=== PATIENT | male | born 1965 | race Two or more races ===

== ENCOUNTER 2025-09-23 10:05 | Emergency (ER) | payer BC, SELFPAY ==
[2025-09-23 10:05] VITALS: BMI 30.2
[2025-09-23 11:00] VITALS: BP 148/85; PULSE 73; RESP 19; TEMP 37.1; O2SAT 95; BMI 30.2
--- NOTE | 2025-09-23 11:01 | XR_ITS ---
Examination: CT abdomen and pelvis without contrast. Coronal 3-D reconstructions. Sagittal 2-D reconstructions. Date and time of exam: 09/23/2025 at 11:16 a.m. CTDI: vol (mGy): 9.7 DLP: (mGycm): 532 INDICATION: Left upper quadrant abdominal pain for 2 months Technique: Axial images of the abdomen have been obtained, 3 mm slice thickness Intravenous contrast material has not been administered. Low dose protocols were performed. One or more of the following dose reduction techniques were used; automated exposure control, adjustment of the mA and/or KV according to patient size, use of iterative reconstruction technique. Findings: In the lumbosacral spine, at L3-L4 there is a very prominent diffuse annular disc bulge, there is thickening of the ligamentum flavum on both sides, these findings do appear to put significant compression on the ventral margin of the thecal space. At L4-L5 there is also a very pronounced generalized disc protrusion which indents the ventral margin of the thecal sac significantly,. There is a midline disc protrusion at L5-S1 which is not is significant. No calcifications and no obstructive uropathy are seen in either kidney, no worrisome mass lesions are identified. The lower pole of the right kidney there is a huge thin-walled fluid-filled cyst measuring 4.6 cm, it has thin rim like calcifications around its margins there is a smaller exophytic sharply circumscribed cyst seen along the posterior margin of the mid upper right kidney measuring 2.5 cm The gallbladder appears normal as does the pancreas. The noncontrast appearance of the liver and spleen and adrenal glands appear normal para-aortic region appears normal. The small bowel loops all appear normal in size and appearance. In the right lower quadrant the appendix is very well visualized filled with air and it appears normal. In the pelvis I do not see any abnormalities. IMPRESSION: 1. There are 2 large benign cysts involving the right kidney of no concern. 2. There are no are no other abnormalities seen anywhere in the abdomen or pelvis. 3. In the lingula of the left upper lobe there is a single prominent area of tubular bronchiectasis. There is very minimal but definite bronchiectasis involving all of the basal segmental bronchi in the left lower lobe, there is definite attenuation and decrease in diameter of the peripheral of pulmonary vasculature in the base of the left lower lobe. 4. See above report regarding some degenerative changes in the lumbar lower lumbar spine
--- NOTE | 2025-09-23 11:01 | PD.EDRME ---
Rapid Medical Screening Exam RME Arrival date/time: 09/23/25 10:05 60-year-old male with no known medical history presents to the emergency room with a chief complaint of left upper quadrant and epigastric abdominal tenderness x 2 months I have greeted and performed a focused initial assessment of this patient. A comprehensive ED assessment and evaluation of the patient, analysis of all test results, and completion of the medical decision making process will be conducted by additional ED providers. Chief Complaint: Back Pain/Injury Time Seen by Provider: 09/23/25 10:24 Vital signs reviewed by provider: Yes Exam: Left upper quadrant abdominal tenderness 8 out of 10 Clear bilateral lung sounds Clinical Impression: Pancreatitis/abdominal pain
[2025-09-23 11:47] LABS: Basophils # (Auto) 0.0 Thou/mm3 (0.0-0.2); Basophils % (Auto) 1 % (0-2.5); Eosinophils # (Auto) 0.2 Thou/mm3 (0.0-0.5); Eosinophils % (Auto) 2 % (0-10); Hematocrit 45.4 % (41.0-53.0); Hemoglobin 16.0 g/dL (13.5-16.0); Immature Granulocytes Auto 0.02 Thou/mm3 (0.00-0.00); Lymphocytes # (Auto) 1.9 Thou/mm3 (1.0-4.8); Lymphocytes % (Auto) 22 % (10-50); Mean Corpuscular HGB Conc 35.2 g/dl (31.0-37.0); Mean Corpuscular Hemoglobin 33.1 pg (25.0-35.0); Mean Corpuscular Volume 94 fL (80-100); Monocytes # (Auto) 0.6 Thou/mm3 (0.0-0.8); Monocytes % (Auto) 7 % (0-12); Neutrophils # (Auto) 5.8 Thou/mm3 (1.8-7.7); Neutrophils % (Auto) 69 % (37-80); Nucleated Red Blood Cell # 0.00 Thou/mm3 (0.00-0.00); Nucleated Red Blood Cell % 0 /100 WBC (0); Platelet Count 243 Thou/mm3 (140-440); RDW Standard Deviation 41.8 fL (35.1-43.9); Red Blood Count 4.83 Miln/mm3 (4.50-5.90); White Blood Count 8.5 Thou/mm3 (3.8-10.6)
[2025-09-23 12:06] LABS: Alanine Aminotransferase 12 U/L (10-49); Albumin, Serum 4.4 gm/dL (3.4-4.8); Albumin/Globulin Ratio 1.2 (1.2-2.2); Alkaline Phosphatase 63 U/L (46-116); Anion Gap 13 (7-16); Aspartate Amino Transferase 15 U/L (0-34); BUN/Creatinine Ratio 22 Ratio (12-20); Bilirubin,Total 0.7 mg/dL (0.3-1.2); Blood Urea Nitrogen 13 mg/dL (9-23); Calcium 9.4 mg/dL (8.3-10.6); Calcium (Corrected) 9.4 mg/dL (8.5-10.1); Carbon Dioxide 24.8 mMol/L (20.0-31.0); Chloride 105 mMol/L (98-107); Creatinine (Component) 0.6 mg/dL (0.6-1.3); Estimated Creatinine Clearance 145.6 mL/min (>60); Globulin 3.6 gm/dL (2.3-3.5); Glucose 148 mg/dL (74-106); Lipase 26 U/L (12-53); Osmolality,Calculated 288 (275-295); Potassium 3.7 mMol/L (3.4-5.1); Sodium 143 mMol/L (136-145); Total Protein 8.0 gm/dL (5.7-8.2); eGFR > 60 See Note
[2025-09-23 12:55] LABS: Collection Type, Urine Clean Catch
[2025-09-23 13:04] LABS: Bacteria,Urine Rare; Bilirubin,Urine Negative (Negative); Blood,Urine Negative (Negative); Clarity,Urine Clear (Clear/Hazy); Color,Urine Yellow (Lt Yel-Yel); Glucose, Urine 4+ (Negative); Ketones,Urine 3+ (Negative); Leukocyte Esterase,Urine Negative (Negative); Nitrite,Urine Negative (Negative); PH,Urine 6.0 (5.0-7.0); Protein,Urine Trace (Neg - Trace); RBC,Urine 3 /hpf (0-3); Specific Gravity,Urine 1.049 (1.001-1.035); Squamous Epithelial Cell,Urine < 1 /hpf (0-5); Urobilinogen,Urine Negative mg/dL (0.0-1.0); WBC,Urine 2 /hpf (0-5)
--- NOTE | 2025-09-23 13:50 | EDNOTE_ITS ---
ED Back Injury Pain RME/HPI General Chief Complaint: Back Pain/Injury Stated Complaint: MID LOWER BACK PAIN X2 MONTHS, LUQ ABD X1 MONTH Time Seen by Provider: 09/23/25 10:24 Arrival date/time: 09/23/25 10:05 60-year-old male patient with significant history of hypertension, came in for evaluation regarding mid back pain radiating to the left upper quadrant, has been ongoing for the last 1 to 2 months, described as dull ache, severity moderate. Patient denies any trauma denies any fall denies any dysuria denies any hematuria. Patient also denies any bladder incontinence or bowel incontinence. Denies any fever. Was seen by PCP, laboratory workup were noted to be unremarkable. Patient is ambulatory. RME / HPI RME / HPI Narrative: 09/23/25 10:05 60-year-old male with no known medical history presents to the emergency room with a chief complaint of left upper quadrant and epigastric abdominal tenderness x 2 months I have greeted and performed a focused initial assessment of this patient. A comprehensive ED assessment and evaluation of the patient, analysis of all test results, and completion of the medical decision making process will be conducted by additional ED providers. Exam: Left upper quadrant abdominal tenderness 8 out of 10 Clear bilateral lung sounds Impression: Pancreatitis/abdominal pain Related Data Previous Rx's ?Medication ?Instructions ?Recorded ibuprofen 600 mg tablet 600 mg PO Q6HR PRN fever or pain 12/04/17 #30 tabs tramadol 50 mg tablet 50 mg PO Q6H PRN pain #10 ta bs 12/04/17 cyclobenzaprine 10 mg tablet 10 mg PO TID PRN muscle s pasm #30 09/23/25 tabs ibuprofen 800 mg tablet 800 mg PO TID PRN pain #30 t abs 09/23/25 Allergies Allergy/AdvReac Type Severity Reaction Status Date / Time No Known Allergies Allergy Verified 09/23/25 10:08 Review of Systems Review of Systems Narrative Review of Systems: Review of system reviewed and within normal limits except mentioned in HPI ED Exam Narrative Physical exam: VITAL SIGNS: Reviewed. GENERAL APPEARANCE: Alert and interactive, follows commands, no acute distress, HEAD AND FACE: Non-traumatic. ENT: PERRL, pink conjunctivitis, eyelid no trauma, Mucous membrane moist. NECK: Supple, nontender, no nuchal rigidity. CHEST: No tenderness, no crepitus, no paradoxical movement, no retractions. LUNGS: Clear, well ventilated, symmetric, no rales, no wheezing, no ronchi, no stridor, good breath sounds bilaterally. HEART: Regular rate, regular rhythm, no murmur, no gallops. ABDOMEN: Soft, positive bowel sounds, nondistended, no guarding, nontender, no rebound, no masses, RECTAL: Deferred. GENITAL: Deferred. NEUROLOGICAL: Gross motor function intact sensory function intact, Appropriate for age. MUSCULOSKELETAL: Mid back tenderness, full range of motion. EXTREMITIES: Nontender, full range of motion. SKIN: Color pink, dry, no rash, no lacerations, no abrasions, no contusions. LYMPHATICS: Deferred. Course Quality Measures none Orders Category Date Time Status CT abdomen pelvis wo con Stat Exams 09/23/25 11:01 Completed CBC Stat Lab 09/23/25 11:29 Completed CMP [Comprehensive Metabolic Panel] Stat Lab 09/23/25 11:29 Completed Lipase Stat Lab 09/23/25 11:29 Completed UA [Urinalysis] Stat Lab 09/23/25 12:45 Completed Urine Culture Stat Lab 09/23/25 12:45 Received CYCLObenzaPRINE [Flexeril] Med 09/23/25 14:21 Discontinued 10 mg PO X1 ONE Ketorolac Inj [Toradol Inj] Med 09/23/25 14:21 Discontinued 30 mg IM X1 ONE Vital Signs Vital signs: Vital Signs Temperature 98.7 F 09/23/25 11:00 Pulse Rate 73 09/23/25 11:00 Respiratory Rate 19 09/23/25 11:00 Blood Pressure 148/85 H 09/23/25 11:00 Pulse Oximetry (%) 95 09/23/25 11:00 Oxygen Delivery Method Room Air 09/23/25 11:00 Back Pain / Injury MDM Narrative MDM Narrative:: 60-year-old male patient with significant history of hypertension, came in for evaluation regarding mid back pain radiating to the left upper quadrant, has been ongoing for the last 1 to 2 months, described as dull ache, severity moderate. Patient denies any trauma denies any fall denies any dysuria denies any hematuria. Patient also denies any bladder incontinence or bowel incontinence. Denies any fever. Was seen by PCP, laboratory workup were noted to be unremarkable. Patient is ambulatory. Laboratory work came back unremarkable urinalysis no sign of UTI or hematuria. CT scan of the abdomen and pelvis showed 60-year-old male patient with significant history of hypertension, came in for evaluation regarding mid back pain radiating to the left upper quadrant, has been ongoing for the last 1 to 2 months, described as dull ache, severity moderate. Patient denies any trauma denies any fall denies any dysuria denies any hematuria. Patient also denies any bladder incontinence or bowel incontinence. Denies any fever. Was seen by PCP, laboratory workup were noted to be unremarkable. Patient is ambulatory. Patient was given Toradol IM and Flexeril. Patient was advised to follow-up with PCP regarding renal cyst on the right, and degenerative disc disease on the lumbar spine. Patient needs MRI of the spine and MRI of the abdomen. Patient data External records reviewed:: None Clinical information provided by:: patient Social determinants that could affect healthcare access:: none Patient has the following chronic illnesses:: Hypertension How is presenting disease/condition affected by chronic disease/condition?: uneffected by Evaluation data The following diagnostics were reviewed and interpreted by me:: lab results and radiology exam(s) Lab and/or radiology exams considered but not ordered:: None Interpretation Summary: see above Medications / Prescriptions Medications or Prescriptions considered but not ordered:: None Medication administrations:: Medication Administration History Discontinued Medications Cyclobenzaprine HCl (Cyclobenzaprine 5 Mg Tablet) 10 mg PO X1 ONE Stop: 09/23/25 14:22 Ketorolac Tromethamine (Ketorolac Inj 30 Mg/Ml Vial) 30 mg IM X1 ONE Stop: 09/23/25 14:22 Toradol IM and Flexeril Consultations Consultation(s) initiated? (list below): No Diagnosis Differential diagnosis back pain/injury: lumbar radiculopathy, sciatica, renal colic and pyelonephritis Most likely diagnosis given after review of the tests above:: Renal cyst, low back pain degenerative disc disease Admission Indicated Admission indicated?: not indicated Admission Request Was there a request for admission?: No Disposition Plan Disposition Plan: Discharge Discharge Attestation Discharge Attestation: The patient and all family members were given an opportunity to ask questions and understood the discharge instructions. Discharge instructions specifically effects, indications for sooner follow up or return to the emergency department, and the expected course of current diagnosis. Patient condition: Stable Discharge Plan Plan Patient Disposition: HOME (Self Care) Discharge Disposition comment: Stable Prescriptions/Referrals Prescriptions/Med Rec: New ibuprofen 800 mg tablet 800 mg PO TID PRN (Reason: pain) Qty: 30 0RF cyclobenzaprine 10 mg tablet 10 mg PO TID PRN (Reason: muscle spasm) Qty: 30 0RF No Action tramadol 50 mg tablet 50 mg PO Q6H PRN (Reason: pain) Qty: 10 0RF ibuprofen 600 mg tablet 600 mg PO Q6HR PRN (Reason: fever or pain) Qty: 30 0RF Referrals: Francis Paez [Primary Care Provider] - In 1 week Problem List Clinical Impression: Renal cyst, right, Degenerative disc disease Patient/Caregiver Discharge Instructions Discharge Activity: activity as tolerated Education Materials: Kidney Problems Additional Instructions: Thank you for the opportunity for serving you today. You are stable for discharged . You are advised to: Follow-up with your PCP in 1 to 2 days Return to ED for worsening of symptoms Increase oral fluids Take medication as prescribed As your PCP to do MRI of your lumbar spine and MRI of your abdomen. As your PCP to refer you to kidney specialist regarding your renal cyst Ask your PCP to refer you to spine surgeon regarding your degenerative lumbar disc disease Print Language: Kiswahili Stand Alone Forms: Page Award Info., Patient Portal Info Letter PA/IDRIS Supervising Physician MASSIMO/IDRIS Supervising Physician: MD Jason
[2025-09-23 14:27] VITALS: BP 136/82; PULSE 70; RESP 18; TEMP 36.6; O2SAT 96
[2025-09-23] MEDS: KETOROLAC INJ 30 MG/ML VIAL IM (14:27)
== END 2025-09-23 14:31 | disposition home or self-care (01) ==
PROVIDERS: Nurse Practitioner Family; Emergency Provider Emergency Medicine; PCP Physician Assistant
DX: N28.1 Cyst of kidney, acquired (principal); M51.360 Other intervertebral disc degeneration, lumbar region with discogenic back pain only; I10 Essential (primary) hypertension
CPT/HCPCS: 36415; 74176; 80053; 81001; 83690; 85025; 87086; 96372; 99283; J1885; A9270